=== PATIENT | female | born 1980 | race African-American/Black ===

== ENCOUNTER 2020-06-17 05:19 | Emergency (ER) | payer OTHER ==
[~2020-06-17] VITALS: Ht 165.1 cm; Wt 74.8 kg
[~2020-06-17 05:19] MED LIST: MEDROLDOSEPACK PO; POTASSIUM20 PO; PROAIR HFA8.5 GM INH; ZPAK PO; [UNRECOGNIZED DRUG - REMARK]
[2020-06-17 05:27] VITALS: BP 154/94
[2020-06-17] MEDS ORDERED: NORVASC 2.5 MG2.5 M1 PO (05:29)
[2020-06-17] MEDS ORDERED: TOPROL XL25 MG PO (05:30)
[2020-06-17] MEDS ORDERED: HYDROCHLOROTHIA25 M2 PO (05:30)
[2020-06-17] MEDS ORDERED: PERIDEX 0.12%473 M1 SWISH&SPIT (06:00)
[2020-06-17] MEDS ORDERED: HYDROCODON-ACE1 EAC7 PO (06:00)
[2020-06-17] MEDS ORDERED: PENICILLIN VK500 MG PO (06:00)
== END 2020-06-17 06:09 | disposition home or self-care (01) ==
LOC: M.ERS 05:19
DX: K06.9 Disorder of gingiva and edentulous alveolar ridge, unspecified (principal); I10 Essential (primary) hypertension; J45.909 Unspecified asthma, uncomplicated; Z79.899 Other long term (current) drug therapy

== ENCOUNTER 2020-06-17 18:17 | Emergency (ER) | payer OTHER ==
[~2020-06-17] VITALS: Ht 165.1 cm; Wt 74.8 kg
[~2020-06-17 18:17] MED LIST changes: +HYDROCHLOROTHIA25 M2 PO; +HYDROCODON-ACE1 EAC7 PO; +NORVASC 2.5 MG2.5 M1 PO; +PENICILLIN VK500 MG PO; +PERIDEX 0.12%473 M1 SWISH&SPIT; +TOPROL XL25 MG PO
[2020-06-17 19:06] VITALS: BP 166/92
== END 2020-06-17 19:07 | disposition home or self-care (01) ==
LOC: M.ERS 18:17
DX: K04.7 Periapical abscess without sinus (principal); I10 Essential (primary) hypertension; J45.909 Unspecified asthma, uncomplicated; Z79.899 Other long term (current) drug therapy